=== PATIENT | male | born 1955 | race Two or more races ===

== ENCOUNTER 2016-12-31 15:25 | Emergency (ER) | payer OTHER ==
[~2016-12-31] VITALS: Ht 175.3 cm; Wt 122.5 kg
[2016-12-31 15:37] VITALS: BP 135/90
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
[2016-12-31] MEDS ORDERED: NORCO 5-325 TA1 EACH ORAL (16:37)
[2016-12-31 16:40] VITALS: BP_SYST 131; BP_SYST 135; BP_DIAS 87; BP_DIAS 90
--- NOTE | 2017-01-02 18:35 | Cardiology Report ---
APPROVED REPORT EKG Measurement Heart [id number] Normal sinus rhythm Left anterior fascicular block Inferior infarct, age undetermined Cannot rule out Anterior infarct, age undetermined Abnormal ECG
== END 2016-12-31 16:49 | disposition home or self-care (01) ==
LOC: EDBD 15:25 → EMR 16:16
DX: R07.89 Other chest pain (principal); I10 Essential (primary) hypertension; I69.851 Hemiplegia and hemiparesis following other cerebrovascular disease affecting right dominant side
CPT/HCPCS: 71250; 93005; 99284